=== PATIENT | female | born 2005 | race Hispanic/Latino ===

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

== ENCOUNTER 2023-04-12 10:14 | Emergency (ER) | payer SELFPAY ==
--- NOTE | 2023-04-12 10:15 | ED.URI ---
HPI - URI/Sore Throat General Chief Complaint: Upper Respiratory Infection Stated Complaint: Sore Throat Time Seen by Provider: 04/12/23 10:15 Source: patient Mode of arrival: ambulatory Limitations: no limitations History of Present Illness HPI Narrative: Patient is a 18-year-old female who presents with congestion, sore throat, cough for over a week. Patient states she had fever at the start of symptoms but have not had any since. Patient has been taking Robitussin. Denies any nausea, vomiting, diarrhea, ear pain. Household has similar symptoms. Related Data Home Medications Medication Instructions Recorded Confirmed Unknown Control 04/12/23 Allergies Allergy/AdvReac Type Severity Reaction Status Date / Time No Known Allergies Allergy Verified 04/12/23 10:44 Review of Systems Review of Systems: All systems reviewed & are unremarkable except as noted in HPI and below Constitutional: Constitutional: Denies body ache(s), Denies chills, Denies fatigue, Denies fever(s), Denies headache(s), Denies malaise and Denies weakness Eyes: Eyes: Denies blurry vision, Denies itchy eyes and Denies loss of vision ENT: Denies otalgia, Denies headache(s), Reports nasal congestion, Denies sinus pain and Reports sore throat Cardiovascular: Cardiovascular: Denies chest pain, Denies irregular heart rhythm and Denies dyspnea Respiratory: Respiratory: Reports cough and Denies dyspnea Gastrointestinal: Gastrointestinal: Denies abdominal pain, Denies diarrhea, Denies nausea and Denies vomiting Musculoskeletal: Musculoskeletal: Denies back pain, Denies myalgias and Denies arthralgias Integumentary/Breasts: Skin/Breast: Denies pruritus and Denies rash Neurologic: Denies headache(s), Denies loss of vision and Denies weakness Psychiatric: Psychiatric: Reports no additional psychiatric complaints Endocrine: Endocrine: Denies fatigue Allergic/Immunologic: Allergic/Immunologic: Denies itchy eyes PMFSH Past Medical History Medical History No active medical problems Social History Social History Smoking status: Never smoker Comments At time of signature, agree with nursing past medical, surgical, social and family history. There is no relevant family history pertinent to the presenting complaint. Exam Const: General: cooperative, healthy appearing, comfortable, no acute distress and well nourished Nutritional Appearance: well nourished Orientation/consciousness: patient oriented x3 Limitations: no limitations HENMT: Head: normal to inspection, normocephalic and atraumatic Ears: hearing grossly normal bilaterally, external ears normal, TM's normal bilaterally, EAC's normal and no periauricular adenopathy Face/Nose/Sinus: Normal external nose present, Abnormal mucous membranes and turbinates present erythematous bilateral and diffuse, normal facial exam, sinuses nontender and face symmetric Face and sinus: normal facial exam, sinuses nontender and face symmetric Mouth: Yes Normal oral and palatal mucosa present, Yes lip normal, Yes tongue normal, Yes Normal salivary glands and ducts present, Yes oropharynx normal and Yes moist mucous membranes Teeth and gingiva: dentition normal Throat: posterior oropharynx normal, tonsils normal and uvula midline Eyes: General: appearance normal, both eyes and all related structures Alignment and Position: alignment normal and position normal Periorbital: periorbital findings normal Eyelids: eyelids normal Pupils: Equal, round and reactive pupils present Neck: Neck: normal visual inspection, full ROM, no lymphadenopathy and supple Chest: Chest palpation & inspection: normal inspection of the chest and normal palpation of entire chest wall Resp: Effort & Inspection: normal respiratory effort and able to speak in complete sentences Auscultation: clear to auscultation oskar
[2023-04-12 10:23] VITALS: BP 127/84; PULSE 77; RESP 16; TEMP 36.6; O2SAT 99
== END 2023-04-12 10:57 | disposition home or self-care (01) ==
PROVIDERS: Emergency Provider Nurse Practitioner Family; PCP Physician Assistant
DX: J06.9 Acute upper respiratory infection, unspecified (principal)
CPT/HCPCS: 99213; G0463

== ENCOUNTER 2024-10-29 08:19 | Emergency (ER) | payer OTHER, SELFPAY ==
--- NOTE | ~2024-10-29 | CT_ITS ---
EXAM: CT abdomen pelvis w con - 10/29/2024 11:16 CDT History: 19 years old Female with lower abd pain LUQ PAIN, N/V/D TECHNIQUE: Multidetector CT of the abdomen and pelvis with intravenous contrast. Coronal and sagitta l reformats were also provided for review. Automatic exposure control was used for this study. CONTRAST: 100 cc of Optiray 350 was used for this study. COMPARISON: None Available. FINDINGS: VISUALIZED CHEST: Visualized lungs are clear. ABDOMEN and PELVIS: LIVER: Focal fatty infiltration along the falciform ligament. GALLBLADDER: No calcified gallstones. BILE DUCTS: No dilatation. SPLEEN: Within normal limits. PANCREAS: Within normal limits. ADRENAL GLANDS: Within normal limits. KIDNEYS and URETERS: No hydronephrosis or hydroureter. No nephroureterolithiasis. URINARY BLADDER: Within normal limits. STOMACH and BOWEL: No abnormal bowel wall thickening. No obstruction or pneumatosis. Normal appendix. Multiple fluid-filled distended loops of small bowel are seen, nonspecific finding and can be seen i n enteritis. REPRODUCTIVE ORGANS: Within normal limits. MESENTERY/PERITONEAL CAVITY: No free fluid or pneumoperitoneum. LYMPH NODES: No abdominal or pelvic lymphadenopathy. ABDOMINAL WALL: Within normal limits. VASCULATURE: Within normal limits. MUSCULOSKELETAL: Within normal limits. IMPRESSION: Multiple fluid-filled distended loops of small bowel are seen, nonspecific finding and can be seen in enteritis. Reviewed, dictated and finalized at location A. IMPRESSION: Multiple fluid-filled distended loops of small bowel are seen, nonspecific find ing and can be seen in enteritis.
--- OUTSIDE RECORDS SUMMARY | 2024-10-29 08:25 | XMS_ITS | Clinical Summary ---
Author Organization [facility] Address [address] [place] [id number] Care Team Providers Care Soda Room Operator Name Role Phone Jamil Mari MD Primary Care Provider [phone] Allergies No known active allergies Social History Tobacco Use Types Packs/Day Years Used Date Smoking Tobacco: Never Smokeless Tobacco: Never Alcohol Use Standard Drinks/Week Comments No 0 (1 standard drink = 0.6 oz pur e alcohol) AUDIT-C Answer Date Recorded Frequency of Alcohol Consumption Never 06/08/2018 Average Number of Drinks Not on file 019 Frequency of Binge Drinking Not on file 05/13 Comments No Sex and Gender Information Value Date Recorded Sex Assigned at Not on file Legal Sex Female 10:54 PM COMB FIXER Gender Identity Not on file Sexual Orientation Not on file Last Filed Vital Signs Vital Sign Reading Time Taken Comments Blood Pressure 125/66 06/09/2018 1:30 AM COMB [facility]ER Pulse 84 02/12/2019 11:45 PM COMB FIXER Temperature 36.6 C (97.8 F) 02/12/2019 11:45 PM COMB FIXER Respiratory Rate 16 02/12/2019 11:45 PM COMB FIXER Oxygen Saturation 100% 02/12/2019 11:45 PM COMB FIXER Inhaled Oxygen Concentration - - Weight 98.6 kg (217 lb 6 oz) 02/12/2019 11:45 PM COMB FIXER Height 157.5 cm (5' 2) 02/12/2019 11:45 PM COMB FIXER Body Mass Index 39.76 02/12/2019 11:45 PM COMB FIXER Plan of Treatment Health Maintenance Due Date Last Done Comments Cervical Cancer Screening Pap Smear (Age 21 to 29) Every 3 Years 2003 Cervical Cancer Screening 2003 Annual Physical 2006 Meningococcal B Vaccine (1 of 2 - Standard) 2019 Hepatitis C 2021 COVID-19 Vaccine (1 - 2023- season) 2023 DTaP, Tdap and Td Vaccines (7 - Td or Tdap) 05/09/2024 05/09/2014, 11/27/2007, 11/27/2007, Additional history exists Pneumococcal Vaccine: Pediatrics (0 to 5 Years) and At-Risk Patients (6 to 49 Years) Aged Out 02/26/2004, 2003, 2003 No longer eligible based on patient's age to complete this topic Hepatitis B Vaccines Completed 11/27/2007, 08/25/2004, 2003, Additional history exists Meningococcal Vaccine Aged Out 05/09/2014 No annel brie eligible based on patient's age to complete this topic HPV Vaccines Completed 09/27/2017, 12/30/2015 RSV Immunizations Under 20 Months Aged Out No longer eligible based on patient's age to complete this topic Insurance [employer] Care Teams Soda Room Operator Relationship Specialty Start Date End Date Jamil Mari MD [address] [id number] PCP - General PEDIATRICS 06/08/18
--- OUTSIDE RECORDS SUMMARY | 2024-10-29 08:25 | XMS_ITS | Clinical Summary ---
Author Organization [facility] Address [address] [place] [address] Care Team Providers Care Muck Farmer Name Role Phone Unavailable Primary Care Provider Unavailabl e Source Comments [facility],non-owned Affiliates and Associated Physician Practices is amultiple site organization consisting of ambulatory clinics and hospital sitesin [place], [place], [place] and [place]. This disclosure is being madepursuant to the Care Everywhere program and may not contain all information available regarding this patient. Last updated 17.[facility] Allergies No known active allergies Medications * Be aware that medications may not be up to date on this document. Alwaysverify current medications with the patient. ibuprofen (MOTRIN) 800 MG tablet Take 800 mg by mouth every 6 hours as needed for Pain Active polyethylene glycol 3350 (MIRALAX) powder Take 17 g by mouth once daily 500 g 3 07/03/2019 Active pantoprazole EC (Protonix) 40 MG tablet TAKE 1 TABLET BY MOUTH EVERY DAY 30 tablet 3 01/21/2022 Active Active Problems Problem Noted Date Diagnosed Date Generalized abdominal pain 05/22/2021 Intermittent exotropia 05/11/2021 Myopic astigmatism of both eyes 05/11/2021 Refractive amblyopia, bilateral 05/11/2021 Other constipation 07/03/2019 Acute right-sided low back pain 05/10/2018 Immunizations Immunization Administration Dates Next Due Covid Pfizer primary Monovalent 12+ yr 0.3ml ,02/04/2021 Family History Medical History Relation Name Comments [place] Maternal Grandfather Relation Name Status Comments Maternal Grandfather Social History Tobacco Use Types Packs/Day Years Used Date Smoking Tobacco: Never Smokeless Tobacco: Never Comments No Sex and Gender Information Value Date Recorded Sex Assigned at Not on file Legal Sex Female 5:43 AM [facility] Gender Identity Not on file Sexual Orientation Not on file Last Filed Vital Signs Vital Sign Reading Time Taken Comments Blood Pressure 109/67 05/22/2021 1:30 PM [facility] Pulse 60 05/22/2021 1:30 PM [facility] Temperature 36.5 C (97.7 F) 05/22/2021 1:15 PM [facility] Respiratory Rate 16 05/22/2021 1:30 PM [facility] Oxygen Saturation 97% 05/22/2021 1:30 PM [facility] Inhaled Oxygen Concentration - - Weight 101 kg (222 lb 10.6 oz) 05/22/2021 11:31 AM [facility] Height 156.7 cm (5' 1.69) 05/22/2021 11:[address] Body Mass Index 41.13 05/22/2021 11:31 AM [facility] Plan of Treatment Health Maintenance Due Date Last Done Comments HIV SCREENING 2018 HPV VACCINE (1 - 3-dose series) 2018 CHLAMYDIA/GONORRHEA SCREENING 2019 MENINGOCOCCAL (Group B) VACCINE SHARED DECISION-MAKING (1 of 2 - Standard) 2019 HEPATITIS C SCREENING 02/19/2021 DTAP/TDAP/TD VACCINES (1 - Tdap) 2022 HEPATITIS B VACCINE (1 of 3 - 19+ 3-dose series) 2022 COVID-19 VACCINE (3 - 2023-2 5 season) 2023 02/26/2021, 02/04/2021 PAP SMEAR 02/25/2024 DEPRESSION SCREENING 04/11/2024 INFLUENZA VACCINE (#1) 2024 ZOSTER VACCINE (1 of 2) 2053 HIB VACCINE Aged Out No longer eligi ble based on patient's age to complete this topic MENINGOCOCCAL GROUPS A/C/Y/W VACCINE Aged Out No longer eligible b ased on patient's age to complete this topic PNEUMOCOCCAL VACCINE Aged Out No long er eligible based on patient's age to complete this topic Insurance
--- OUTSIDE RECORDS SUMMARY | 2024-10-29 08:25 | XMS_ITS | Encounter Summary ---
Author Organization [facility] Address [address] [place] [address] Care Team Providers Care Medication Aid Name Role Phone Jamil Mari MD Primary Care Provider Reason for Visit * Reason Onset Date Comments Procedure 04/28/2021 Encounter Details Date Type Department Care Team (Late st Contact Info) Description 04/28/2021 Telephone [facility] Pediatrics - [address] [place] [id number] Luis Yap MD [address] [place] [id number] Procedure Social History Tobacco Use Types Packs/Day Years Used Date Smoking Tobacco: Never Smokeless Tobacco: Never Comments No Sex and Gender Information Value Date Recorded Sex Assigned at Not on file Legal Sex Female 5:43 AM COUNTER STITCHER Gender Identity Not on file Sexual Orientation Not on file documented as of this encounter Miscellaneous Notes * Telephone Encounter - Martha Guerrero 04/28/2021 10:50 AM CST DARIO abarca called and scheduled EGD proc with Marely on 05/22/21 at 1:45 pm. Prep letter given to [facility]. COVID protocol to be relayed. TER STITCHER documented in this encounter Plan of Treatment Not on file documented as of this encounter Visit Diagnoses Not on filedocumented in this encounter Care Teams Medication Aid Relationship Specialty Start Date End Date Jamil Mari MD [address] [facility] [address] [place] [address] PCP - General Pediatrics 04/08/17 11/10/23 documented as of this encounter
--- OUTSIDE RECORDS SUMMARY | 2024-10-29 08:25 | XMS_ITS | Encounter Summary ---
Author Organization [facility] Address [address] [place] [address] Care Team Providers Care Scientific Advisor Name Role Phone Jamil Mari MD Primary Care Provider [phone] Encounter Details Date Type Department Care Team (Late st Contact Info) Description 05/26/[address] [address] Luis Yap MD [address] [place] [address] Social History Tobacco Use Types Packs/Day Years Used Date Smoking Tobacco: Never Smokeless Tobacco: Never Comments No Sex and Gender Information Value Date Recorded Sex Assigned at Not on file Legal Sex Female 5:43 AM DIRECTOR FEDERAL Gender Identity Not on file Sexual Orientation Not on file documented as of this encounter Functional Status * Is person deaf or have serious hearing difficulty? Answer Date of Assessment Author No 05/22/2021 1:48 PM DIRECTOR FEDERAL Xi Matamoros RN * Is person blind or have serious difficulty seeing? Answer Date of Assessment Author No 05/22/2021 1:48 PM DIRECTOR FEDERAL Xi Matamoros, RN * Does person have serious difficulty walking/climbing stairs? Answer Date of Assessment Author No 05/22/2021 1:48 PM DIRECTOR FEDERAL Xi Matamoros, RN * Does person have difficulty dressing/bathing? Answer Date of Assessment Author No 05/22/2021 1:48 PM DIRECTOR FEDERAL Xi Matamoros, RN * Does person have difficulty doing errands alone? Answer Date of Assessment Author No 05/22/2021 1:48 PM Xi Jameson RN documented as of this encounter Mental Status * Does person have difficulty concentrating/remembering/making decisions? Answer Entry Date Author No 05/22/2021 1:48 PM Xi Jameson RN documented in this encounter Miscellaneous Notes * Telephone Encounter - Sandrita Londono RN - 05/29/2021 9:15 AM CST Left message to call the office. Letter mailed to home address that we are trying to contact them. CTOR FEDERAL * Telephone Encounter - Mattie Bar RN - 05/28/2021 8:45 AM DIRECTOR FEDERAL LM on home VM asking someone to call us back CTOR FEDERAL * Telephone Encounter - Fina Hamilton RN - 05/27/2021 9:40 AM CST LM requesting mom call office for results. CTOR FEDERAL * Telephone Encounter - Diana Rubio RN - 05/26/2021 1:07 PM DIRECTOR FEDERAL Primary phone number does not have VM set up. CTOR FEDERAL * Telephone Encounter - Isabella De La Cruz APRN-KARLEE - 05/26/2021 11:33 AM DIRECTOR FEDERAL I called to discuss the normal EGD. No voicemail option. Please try mom again. CTOR FEDERAL * Telephone Encounter - Luis Yap MD - 05/26/2021 10:49 AM DIRECTOR FEDERAL See normal scope CTOR FEDERAL documented in this encounter Plan of Treatment Not on file documented as of this encounter Visit Diagnoses Not on filedocumented in this encounter Care Teams Scientific Advisor Relationship Specialty Start Date End Date Jamil Mari MD [address] [place] [address] PCP - General Pediatrics 04/08/17 11/10/23 documented as of this encounter
[2024-10-29 08:42] VITALS: BP 137/79; PULSE 56; RESP 20; TEMP 36.7; O2SAT 98
[2024-10-29 08:49] VITALS: BP 120/63; PULSE 60; RESP 19; TEMP 36.9; O2SAT 100
--- OUTSIDE RECORDS SUMMARY | 2024-10-29 09:09 | XMS_ITS | Clinical Summary ---
Author Organization [facility] Address [address] [place] [address] Care Team Providers Care Framing Mechanic Name Role Phone Jamil Mari MD Primary Care Provider [phone] Allergies No known active allergies Social History [...] on file Legal Sex Female 10:54 PM WINDOW DRESSER Gender Identity Not on file Sexual Orientation Not on file Last Filed Vital Signs Vital Sign Reading Time Taken Comments Blood Pressure 125/66 06/09/2018 1:30 AM WINDOW DRESSER Pulse 84 02/12/2019 11:45 PM WINDOW DRESSER Temperature 36.6 C (97.8 F) 02/12/2019 11:45 PM WINDOW DRESSER Respiratory Rate 16 02/12/2019 11:45 PM WINDOW DRESSER Oxygen Saturation 100% 02/12/2019 11:45 PM WINDOW DRESSER Inhaled Oxygen Concentration - - Weight 98.6 kg (217 lb 6 oz) 02/12/2019 11:45 PM WINDOW DRESSER Height 157.5 cm (5' 2) 02/12/2019 11:45 PM WINDOW DRESSER Body Mass Index 39.76 02/12/2019 11:45 PM WINDOW DRESSER Plan of Treatment Health Maintenance Due Date [...] patient's age to complete this topic Insurance [place] Care Teams Framing Mechanic Relationship Specialty Start Date End Date Jamil Mari MD [address] [address] PCP - General PEDIATRICS 06/08/18
--- OUTSIDE RECORDS SUMMARY | 2024-10-29 09:09 | XMS_ITS | Clinical Summary ---
Author Organization [facility] Address [address] [facility] [place] [address] Care Team Providers Care Soil Tester Name Role Phone Unavailable Primary Care Provider Unavailabl e Source Comments [facility],non-owned Affiliates and Associated Physician Practices is amultiple site organization consisting of ambulatory clinics and hospital sitesin [place], [place], [place] and [place]. This disclosure is being madepursuant to the Care Everywhere program and may not contain all information available regarding this patient. Last updated 17.[facility] Allergies No known active allergies Medications [...] on file Legal Sex Female 5:43 AM ASSISTANT CHILD CARE TEACHER Gender Identity Not on file Sexual Orientation Not on file Last Filed Vital Signs Vital Sign Reading Time Taken Comments Blood Pressure 109/67 05/22/2021 1:30 PM ASSISTANT CHILD CARE TEACHER Pulse 60 05/22/2021 1:30 PM ASSISTANT CHILD CARE TEACHER Temperature 36.5 C (97.7 F) 05/22/2021 1:15 PM ASSISTANT CHILD CARE TEACHER Respiratory Rate 16 05/22/2021 1:30 PM ASSISTANT CHILD CARE TEACHER Oxygen Saturation 97% 05/22/2021 1:30 PM ASSISTANT CHILD CARE TEACHER Inhaled Oxygen Concentration - - Weight 101 kg (222 lb 10.6 oz) 05/22/2021 11:31 AM ASSISTANT CHILD CARE TEACHER Height 156.7 cm (5' 1.69) 05/22/2021 11:[address] Body Mass Index 41.13 05/22/2021 11:31 AM ASSISTANT CHILD CARE TEACHER Plan of Treatment Health Maintenance Due Date [...]
--- OUTSIDE RECORDS SUMMARY | 2024-10-29 09:09 | XMS_ITS | Encounter Summary ---
Author Organization [facility] Address [address] [place] [address] Care Team Providers Care Presentation Specialist Name Role Phone Jamil Mari MD Primary Care Provider [phone] Reason for Visit * Reason Onset Date Comments Procedure 04/28/2021 Encounter Details Date Type Department Care Team (Late st Contact Info) Description 04/28/2021 Telephone [facility] - [address] [place] [id number] Luis Yap MD [address] [place] [id number] Procedure Social History Tobacco Use Types Packs/Day Years Used Date Smoking Tobacco: Never Smokeless Tobacco: Never Comments No Sex and Gender Information Value Date Recorded Sex Assigned at Not on file Legal Sex Female 5:43 AM RODDING ANODE WORKER Gender Identity Not on file Sexual Orientation Not on file documented as of this encounter Miscellaneous Notes * Telephone Encounter - Martha Guerrero 04/28/2021 10:50 AM CST DARIO abarca called and scheduled EGD proc with Marely on 05/22/21 at 1:45 pm. Prep letter given to mom a clinic. COVID protocol to be relayed. ING ANODE WORKER documented in this encounter Plan of Treatment Not on file documented as of this encounter Visit Diagnoses Not on filedocumented in this encounter Care Teams Presentation Specialist Relationship Specialty Start Date End Date Jamil Mari MD [address] [facility] [address] [place] [address] PCP - General Pediatrics 04/08/17 11/10/23 documented as of this encounter
--- OUTSIDE RECORDS SUMMARY | 2024-10-29 09:09 | XMS_ITS | Encounter Summary ---
Author Organization [facility] Address [address] [place] [address] Care Team Providers Care School Aide Name Role Phone Jamil Mari MD Primary Care Provider [phone] Encounter Details Date Type Department Care Team (Late st Contact Info) Description 05/26/[address] [address] Luis Yap MD [address] [place] [address] Social History Tobacco Use Types Packs/Day Years Used Date Smoking Tobacco: Never Smokeless Tobacco: Never Comments No Sex and Gender Information Value Date Recorded Sex Assigned at Not on file Legal Sex Female 5:43 AM COOLER SERVICER Gender Identity Not on file Sexual Orientation Not on file documented as of this encounter Functional Status * Is person deaf or have serious hearing difficulty? Answer Date of Assessment Author No 05/22/2021 1:48 PM COOLER SERVICER Xi Matamoros RN * Is person blind or have serious difficulty seeing? Answer Date of Assessment Author No 05/22/2021 1:48 PM COOLER SERVICER Xi Matamoros, RN * Does person have serious difficulty walking/climbing stairs? Answer Date of Assessment Author No 05/22/2021 1:48 PM COOLER SERVICER Xi Matamoros, RN * Does person have difficulty dressing/bathing? Answer Date of Assessment Author No 05/22/2021 1:48 PM COOLER SERVICER Xi Matamoros, RN * Does person have [...] that we are trying to contact them. ER SERVICER * Telephone Encounter - Mattie Bar RN - 05/28/2021 8:45 AM COOLER SERVICER LM on home VM asking someone to call us back ER SERVICER * Telephone Encounter - Fina Hamilton RN - 05/27/2021 9:40 AM CST LM requesting mom call office for results. ER SERVICER * Telephone Encounter - Diana Rubio RN - 05/26/2021 1:07 PM COOLER SERVICER Primary phone number does not have VM set up. ER SERVICER * Telephone Encounter - Isabella De La Cruz APRN-KARLEE - 05/26/2021 11:33 AM COOLER SERVICER I called to discuss the normal EGD. No voicemail option. Please try mom again. ER SERVICER * Telephone Encounter - Luis Yap MD - 05/26/2021 10:49 AM COOLER SERVICER See normal scope ER SERVICER documented in this encounter Plan of Treatment Not on file documented as of this encounter Visit Diagnoses Not on filedocumented in this encounter Care Teams School Aide Relationship Specialty Start Date End Date Jamil Mari MD [address] [place] [address] PCP - General Pediatrics 04/08/17 11/10/23 documented as of this encounter
--- NOTE | 2024-10-29 09:32 | ED.NAVMDI ---
HPI - Nausea/Vomiting/Diarrhea General Chief complaint: Nausea/Vomiting/Diarrhea Stated complaint: abdominal pain, vomiting Time Seen by Provider: 10/29/24 09:01 Source: patient Mode of arrival: ambulatory Limitations: no limitations History of Present Illness HPI Narrative: Patient is a 19 y/o female, with PMH of IBS, who presents to the ED with c/o abd pain, N/V/D. Patient reports having cramping periumbilical and epigastric abdominal pain that has been consistent over the past 1 week. Reports nausea, vomiting, intermittent diarrhea/constipation. Reports she recently returned from [place] as beginning of the month and her mother did have some similar symptoms after returning as well, though her symptoms have since resolved. Patient does report decreased appetite, denies fevers. Denies rectal bleeding, melena, urinary complaints. Related Data Home Medications ?Medication ?Instructions ?Recorded ?Confirmed ?Last Taken ?Type Unknown Control 04/12/23 Unknown History Allergies Allergy/AdvReac Type Severity Reaction Status Date / Time No Known Allergies Allergy Verified 10/29/24 08:49 Review of Systems Review of Systems: All systems reviewed & are unremarkable except as noted in HPI. All systems reviewed & are unremarkable except as noted in HPI and below PMFSH Past Medical History Medical History No active medical problems Social History Social History Smoking status: Never smoker Exam Narrative: GENERAL: Well appearing, morbidly obese with BMI of 40.3, non-toxic, in no acute distress. HEAD: Normocephalic, atraumatic. RESPIRATORY: Airway patent, respirations nonlabored. Clear to auscultation bilaterally, no rales, rhonchi, wheezing. CARDIOVASCULAR: Regular rate and rhythm without murmurs, rubs, or gallops. ABDOMINAL: Soft, mild diffuse tenderness throughout epigastric region, periumbilical region, nondistended. Normoactive BS. MUSCULOSKELETAL: Moves all extremities. No gross deformities. SKIN: Warm, dry, normal color. NEURO: A&O X3. Speech clear. Cranial nerves II-XII grossly intact. Steady gait. No ataxic movements. PSYCHIATRIC: Appropriate mood and affect. Normal interaction. Course Vital Signs Vital signs: Vital Signs Temperature 98.0 F 10/29/24 08:42 Pulse Rate 56 L 10/29/24 08:42 Respiratory Rate 20 10/29/24 08:42 Blood Pressure 137/79 10/29/24 08:42 Pulse Oximetry 98 10/29/24 08:42 Oxygen Delivery Room Air 10/29/24 08:42 Temperature 98.5 F 10/29/24 08:49 Pulse Rate 60 10/29/24 08:49 Respiratory Rate 19 10/29/24 08:49 Blood Pressure 120/63 10/29/24 08:49 Pulse Oximetry 100 10/29/24 08:49 Oxygen Delivery Room Air 10/29/24 08:42 MDM - Nausea/Vomiting/Diarrhea MDM Narrative Medical decision making narrative: Patient presented to ED with intermittent abdominal pain over the past 1 week, nausea, vomiting, diarrhea. Recent trip to [place]. Vital signs are stable upon arrival. Patient is in no acute distress. Cbc without leukocytosis or anemia. CMP is unremarkable. Stable electrolytes. Stable kidney function. Normal LFTs and lipase. UA is clear. Urine is negative. CT scan of abdomen/pelvis was obtained and showing findings of nonspecific enteritis. Patient was given Pepcid, fluids, Zofran, Bentyl. On re-evaluation, she is feeling much better. Discussed lab and imaging findings, likelihood of gastroenteritis and management of such. Will prescribe Bentyl, Zofran, Pepcid for home use. Advised to stay well hydrated. Encouraged plenty of fluids. Discussed brat diet. Recommended follow-up with PCP for further evaluation. Given strict return precautions. She is in agreement with plan. Discharged in stable condition. Medical Records Attestation: I reviewed the patient's medical records. Lab Data Attestation: I reviewed the patient's lab results. 10/29/24 09:36 10/29/24 09:36 Labs: Lab Results 10/29/24 10/29/24 10/29/24 Range/Units 09:36 09:49 10:10 WBC 6.8 (4.5-10.0) K/mm3 RBC 4.49 (4.2-5.4) M/mm3 Hgb 12.7 (12.0-15.0) g/dL Hct 39.5 (37.0-47.0) % MCV 88.0 (80-100) fl MCH 28.3 (26-34) pg MCHC 32.2 (32-36) g/dl RDW 13.1 (11.5-14.5) % Plt Count 196 (150-375) k/mm3 MPV 11.0 H (7.4-10.4) fl Immature Gran % (Auto) 0.3 (0-0.5) % Neut % (Auto) 53.9 (45.5-73.1) % Lymph % (Auto) 35.3 (18.3-44.2) % Finney % (Auto) 8.3 (2.6-8.5) % Eos % (Auto) 1.8 (0-4.4) % Baso % (Auto) 0.4 (0.2-1.2) % Lymph # (Auto) 2.39 (0.9-3.2) K/mm3 Finney # (Auto) 0.6 (0.1-0.6) K/mm3 Eos # (Auto) 0.1 (0-0.3) K/mm3 Baso # (Auto) 0.0 (0.0-0.1) K/mm3 Abs Immat Gran (auto) 0.02 (0.00-0.031) K/mm3 Absolute Neuts (auto) 3.7 (1.3-6.7) K/mm3 Absolute Nucleated RBC 0.000 (0.0-0.012) K/mm3 Nucleated RBC % 0.0 (0.0-0.2) % Sodium 139 (137-145) mmol/L Potassium 4.2 (3.4-5.0) mmol/L Chloride 107 (98-107) mmol/L Carbon Dioxide 22 (22-30) mmol/L Anion Gap 10 (4-12) mmol/L BUN 13 (7-17) mg/dL Creatinine 0.51 L (0.7-1.0) mg/dL Estim Creat Clear Calc 161 ml/min Estimated GFR > 60 (59 - ) Glucose 84 (65-110) mg/dL Calcium 9.4 (8.4-10.2) mg/dL Magnesium 2.0 (1.6-2.3) mg/dL Total Bilirubin 0.6 (0.2-1.3) mg/dL AST 37 H (14-36) U/L ALT 30 (6-35) U/L Alkaline Phosphatase 80 (38-126) U/L Total Protein 8.2 (6.3-8.2) g/dL Albumin 4.4 (3.5-5.1) g/dL Lipase 43 (23-300) U/L Urine Color Yellow (Yellow) Urine Appearance Clear (Clear) Urine pH 7.5 (5.0-9.0) Ur Specific [place] 1.020 (1.001-1.035) Urine Protein Negative (Negative) mg/dL Urine Glucose (UA) Negative (Negative) mg/dL Urine Ketones Negative (Negative) mg/dL Ur Blood (Man) Negative (Negative) Urine Nitrate Negative (Negative) Urine Bilirubin Negative (Negative) Urine Urobilinogen 0.2 (<2.0) mg/dL Leukocyte Esterase Rfl Negative (Negative) KORINA/UL POC Urine HCG, Qual Negative (Negative) Imaging Data Attestation: I personally reviewed and interpreted this imaging study as follows: Radiologist's impression: ITS Impressions Abdomen/Pelvis CT 10/29/24 11:34 IMPRESSION: Multiple fluid-filled distended loops of small bowel are seen, nonspecific finding and can be seen in enteritis. Discharge Plan Discharge Clinical Impression: Gastroenteritis Patient Disposition: Home Condition: Stable Instructions: Antibiotic Form, Clear Liquid Diet (ED), Gastroenteritis (ED), Acute Nausea and Vomiting (ED) Additional Instructions: Recommend Tylenol, Bentyl as needed for pain. Recommend taking Pepcid daily for acid reflux. Utilize zofran as needed for further nausea. Increase fluid intake. Recommend electrolyte rich fluids, gatorade, pedialyte, body armour. Recommend clear liquids or bland diet until symptoms improve, such as bananas, rice, applesauce, toast, or crackers. Follow up with your primary care doctor for further evaluation. Return to the ED if you experience worsening or severe symptoms, unable to keep down food or drink, severe pain, fevers, rectal bleeding, vomiting blood, or any other symptoms of concern. Patient Language: Vietnamese Prescriptions: New dicyclomine 20 mg tablet 20 mg PO TID PRN (Reason: Abdominal Discomfort) Qty: 15 0RF ondansetron 4 mg tablet,disintegrating 4 mg PO Q8H PRN (Reason: nausea and vomiting) Qty: 15 0RF famotidine [Pepcid] 20 mg tablet 20 mg PO DAILY Qty: 15 0RF No Action Unknown Control azithromycin 250 mg tablet See Rx Instructions .ROUTE .COMPLEX Qty: 6 0RF Rx Instructions: For 250 mg dose pack: take 500 mg today (day 1), then 250 mg for 4 days (days 2-5) prednisone 20 mg tablet 40 mg PO DAILY 5 Days Qty: 10 0RF benzonatate 100 mg capsule 100 mg PO BID PRN (Reason: cough) Qty: 14 0RF Follow-up/Referrals: Pura,ROBBY Zarate [Primary Care Provider] - Stand Alone Forms: Work/School Release IP Time of Disposition: 12:10
[2024-10-29 09:40] LABS: Hematocrit 39.5 % (37.0-47.0); Hemoglobin 12.7 g/dL (12.0-15.0); Immature Granulocyte Percent A 0.3 % (0-0.5); Lymphocytes Absolute Auto 2.39 K/mm3 (0.9-3.2); Mean Corpuscular HGB Conc 32.2 g/dl (32-36); Mean Corpuscular Hemoglobin 28.3 pg (26-34); Mean Corpuscular Volume 88.0 fl (80-100); Nucleated Red Blood Cells Absolute Auto 0.000 K/mm3 (0.0-0.012); Nucleated Red Blood Cells Perc 0.0 % (0.0-0.2); Platelet Count Result 196 k/mm3 (150-375); Red Blood Count 4.49 M/mm3 (4.2-5.4); White Blood Count 6.8 K/mm3 (4.5-10.0)
[2024-10-29 09:56] LABS: Add Urine Microscopic? NO; Appearance Urine Clear (Clear); Glucose Urine UA Negative (Negative); Leukocyte Esterase Ur Negative LEU/UL (Negative); Nitrate Urine Negative (Negative); Specific Grav Ur 1.020 (1.001-1.035)
[2024-10-29 10:00] LABS: Alanine Aminotransferase 30 U/L (6-35); Albumin Level 4.4 g/dL (3.5-5.1); Alkaline Phosphatase 80 U/L (38-126); Anion Gap 10 mmol/L (4-12); Aspartate Amino Transferase 37 U/L (14-36); Bilirubin,Total 0.6 mg/dL (0.2-1.3); Blood Urea Nitrogen 13 mg/dL (7-17); Calcium 9.4 mg/dL (8.4-10.2); Carbon Dioxide 22 mmol/L (22-30); Chloride 107 mmol/L (98-107); Estimated CRCL calculation 161 ml/min; Estimated Glomerular Filt Rate > 60; Glucose 84 mg/dL (65-110); Lipase 43 U/L (23-300); Magnesium 2.0 mg/dL (1.6-2.3); Potassium 4.2 mmol/L (3.4-5.0); Sodium 139 mmol/L (137-145); Total Protein 8.2 g/dL (6.3-8.2)
[2024-10-29 10:12] LABS: BEDSIDEPREGUCG Negative (Negative)
[2024-10-29] MEDS: ONDANSETRON INJ 4 MG/2 ML VIAL IV PUSH (10:14)
[2024-10-29] MEDS: SODIUM CHLORIDE 0.9% IV 1,000 ML 999 ML IV CONT (10:14)
[2024-10-29] MEDS: DICYCLOMINE HCL 10 MG CAPSULE 20 MG PO (10:14)
[2024-10-29] MEDS: FAMOTIDINE 20 MG/2 ML VIAL IV PUSH (10:50)
[2024-10-29 12:19] VITALS: BP 104/79; PULSE 60; RESP 20; O2SAT 100
== END 2024-10-29 12:21 | disposition home or self-care (01) ==
PROVIDERS: Emergency Provider Physician Assistant; PCP Physician Assistant
DX: K52.9 Noninfective gastroenteritis and colitis, unspecified (principal)
CPT/HCPCS: 36415; 74177; 80053; 81003; 81025; 83690; 83735; 85025; 96361; 96374; 96375; 99284; A9270; J2405; J7030; Q9967

== ENCOUNTER 2025-03-25 13:52 | Emergency (ER) | payer OTHER, SELFPAY ==
--- NOTE | ~2025-03-25 | CT_ITS ---
EXAMINATION: CT cervical spine wo con DATE: 03/25/2025 16:07 INDICATION: Fall TECHNIQUE: Computed tomography (CT) of the cervical spine was performed without intravenous contrast. Automated exposure control and iterative reconstruction technique were employed. The dose-length product was 590.50 mGy-cm. COMPARISON: None FINDINGS: Alignment is normal. Vertebral body and disc heights are normal. No fracture. Minimal to mild osteoarthritis at a few of the cervical facet and uncovertebral joints. No central canal or neural foraminal stenosis. Cervical soft tissues are unremarkable. Visualized upper lungs are clear. IMPRESSION: 1. Minimal to mild cervical facet and uncovertebral osteoarthritis. Otherwise unremarkable CT with no acute osseous abnormality. Reviewed, dictated and finalized at location A. N SERVICE TECHNICIAN IMPRESSION: 1. Minimal to mild cervical facet and uncovertebral osteoarthritis. Otherwise u nremarkable CT with no acute osseous abnormality.
--- NOTE | ~2025-03-25 | CT_ITS ---
EXAMINATION: CT brain wo con DATE: 03/25/2025 16:06 INDICATION: Fall TECHNIQUE: Computed tomography (CT) of the head was performed without intravenous contrast. Sagittal and coronal reconstructions were performed. The mA was adjusted according to patient size. Iterative reconstruction technique was employed. The dose-length product was 529.67 mGy-cm. COMPARISON: None FINDINGS: No fracture. No acute intracranial hemorrhage, acute infarction or abnormal extra axial fluid collection. Ventricles are normal and symmetric. No mass/mass effect. The orbits, paranasal sinuses and mastoid air cells are normal. IMPRESSION: 1. Normal head CT. No fracture or acute intracranial process. Reviewed, dictated and finalized at location A. STANT PROFESSOR
--- NOTE | ~2025-03-25 | XR_ITS ---
EXAMINATION: XR ankle LT 2V, 03/25/2025 16:25 WHARF HELPER HISTORY: trauma COMPARISON: No comparisons available. Findings: No acute fracture or malalignment. No significant degenerative changes. Soft tissues unremarkable. Impression: No acute fracture or malalignment. Reviewed, dictated and finalized at location P. F HELPER Impression: No acute fracture or malalignment.
[2025-03-25 14:12] VITALS: BP 122/73; PULSE 59; RESP 20; TEMP 36.4; O2SAT 100
--- NOTE | 2025-03-25 15:35 | ED.FALL ---
HPI - Fall General Chief Complaint: Fall Stated Complaint: fell at work, hit head, back pain Time Seen by Provider: 03/25/25 15:27 History of Present Illness HPI Narrative: Pt was at work and backing out of walk in with order of groceries in arms and tripped over palate on ground landing on back of head and twisting ankle under palate. Pt denies LOC. Pt has b/l neck pain and mild MACIAS. P has mild tenderness to lateral left ankle. Related Data Home Medications ?Medication ?Instructions ?Recorded ?Confirmed ?Last Taken ?Type Unknown Control 04/12/23 Unknown History Allergies Allergy/AdvReac Type Severity Reaction Status Date / Time No Known Allergies Allergy Verified 03/25/25 13:59 Review of Systems Review of Systems: All systems reviewed & are unremarkable except as noted in HPI and below PMFSH Past Medical History Medical History No active medical problems Social History Social History Smoking status: Never smoker Exam Const: General: healthy appearing and no acute distress Nutritional Appearance: well nourished Orientation/consciousness: patient oriented x3 Limitations: no limitations HENMT: Head: contusion left occipital and right occipital Eyes: EOM: EOMs intact bilaterally Neck: Neck: normal visual inspection and no meningeal signs Other: tender bilateral paraspinous muscles no midline pain Chest: Chest palpation & inspection: normal inspection of the chest Resp: Effort & Inspection: normal respiratory effort Auscultation: clear to auscultation bilaterally Cardio: Rate: regular rate Rhythm: regular rhythm GI: GI Palp: Yes Soft to palpation and No Tenderness to palpation present (GI) Auscultation: normal bowel sounds Back/Spine/Pelvis: Back: no CVA tenderness Skin: General skin exam: normal color Rashes: no rashes Wounds: no wounds Neuro: General: patient oriented x3, moves all extremities, no meningeal signs and no focal motor deficits Speech: normal speech Extrem: General: normal to inspection and no clubbing, cyanosis or edema Other: tender lateral malleulus left ankle no swelling Psych: Mental Status: mental status grossly normal Affect: normal affect Attitude: cooperative Course Vital Signs Vital signs: Vital Signs Temperature 97.6 F 03/25/25 14:12 Pulse Rate 59 L 03/25/25 14:12 Respiratory Rate 20 03/25/25 14:12 Blood Pressure 122/73 03/25/25 14:12 Pulse Oximetry 100 03/25/25 14:12 Oxygen Delivery Room Air 03/25/25 14:12 Temperature 97.6 F 03/25/25 14:12 Pulse Rate 59 L 03/25/25 14:12 Respiratory Rate 20 03/25/25 14:12 Blood Pressure 122/73 03/25/25 14:12 Pulse Oximetry 100 03/25/25 14:12 Oxygen Delivery Room Air 03/25/25 14:12 MDM MDM Narrative Medical decision making narrative: will get ct head and c spine and x ray ankle and treat pain. x rays and ct unremarkable Differential Diagnosis Differential Diagnosis: sah head injury, subdural, ankle fx vs sprain, cervical strain vs fx vs contusion Imaging Data Attestation: I personally reviewed and interpreted this imaging study as follows: My impression: no fx or blood Radiologist's impression: ITS Impressions Head CT 03/25/25 16:13 IMPRESSION: 1. Normal head CT. No fracture or acute intracranial process. Cervical Spine CT 03/25/25 16:14 IMPRESSION: 1. Minimal to mild cervical facet and uncovertebral osteoarthritis. Otherwise unremarkable CT with no acute osseous abnormality. Ankle X-Ray 03/25/25 16:32 Impression: No acute fracture or malalignment. Discharge Plan Discharge Clinical Impression: Ankle sprain, Head injury, Cervical strain Patient Disposition: Home Condition: Stable Instructions: Antibiotic Form, Ankle Sprain (ED), Concussion (ED), Contusion in Adults (ED) Patient Language: Moldovan Prescriptions: New naproxen [Naprosyn] 500 mg tablet 500 mg PO BID Qty: 20 0RF methocarbamol 500 mg tablet 500 mg PO TID Qty: 30 0RF No Action Unknown Control azithromycin 250 mg tablet See Rx Instructions .ROUTE .COMPLEX Qty: 6 0RF Rx Instructions: For 250 mg dose pack: take 500 mg today (day 1), then 250 mg for 4 days (days 2-5) prednisone 20 mg tablet 40 mg PO DAILY 5 Days Qty: 10 0RF benzonatate 100 mg capsule 100 mg PO BID PRN (Reason: cough) Qty: 14 0RF dicyclomine 20 mg tablet 20 mg PO TID PRN (Reason: Abdominal Discomfort) Qty: 15 0RF ondansetron 4 mg tablet,disintegrating 4 mg PO Q8H PRN (Reason: nausea and vomiting) Qty: 15 0RF famotidine [Pepcid] 20 mg tablet 20 mg PO DAILY Qty: 15 0RF Follow-up/Referrals: Pura,ROBBY Zarate [Primary Care Provider, Family Practice] Stand Alone Forms: Work/School Release IP
[2025-03-25] MEDS: KETOROLAC 30 MG/ML VIAL (*BKC) IM (16:14)
--- OUTSIDE RECORDS SUMMARY | 2025-03-25 18:05 | XMS_ITS | Clinical Summary ---
Author Organization [facility] Address [address] [place] [address] Care Team Providers Care Shipmaster Name Role Phone Unavailable Primary Care Provider Unavailabl e Source Comments [facility],non-owned Affiliates and Associated Physician Practices is amultiple site organization consisting of ambulatory clinics and hospital sitesin [place], [place], [place] and [place]. This disclosure is being madepursuant to the Care Everywhere program and may not contain all information available regarding this patient. Last updated 17.[facility] Allergies No known active allergies Medications * [...] on file Legal Sex Female 5:43 AM DISC RECORDIST Gender Identity Not on file Sexual Orientation Not on file Last Filed Vital Signs Vital Sign Reading Time Taken Comments Blood Pressure 109/67 05/22/2021 1:30 PM DISC RECORDIST Pulse 60 05/22/2021 1:30 PM DISC RECORDIST Temperature 36.5 C (97.7 F) 05/22/2021 1:15 PM DISC RECORDIST Respiratory Rate 16 05/22/2021 1:30 PM DISC RECORDIST Oxygen Saturation 97% 05/22/2021 1:30 PM DISC RECORDIST Inhaled Oxygen Concentration - - Weight 101 kg (222 lb 10.6 oz) 05/22/2021 11:31 AM DISC RECORDIST Height 156.7 cm (5' 1.69) 05/22/2021 11:[address] Body Mass Index 41.13 05/22/2021 11:31 AM DISC RECORDIST Plan of Treatment Health Maintenance Due Date Last Done Comments HIV SCREENING 2018 HPV VACCINE (1 - 3-dose series) 2018 CHLAMYDIA/GONORRHEA SCREENING 2019 MENINGOCOCCAL (Group B) VACCINE SHARED DECISION-MAKING (1 of 2 - Standard) 2019 HEPATITIS C SCREENING 02/19/2021 DTAP/TDAP/TD VACCINES (1 - Tdap) 2022 HEPATITIS B VACCINE (1 of 3 - 19+ 3-dose series) 2022 PAP SMEAR 02/25/2024 DEPRESSION SCREENING 04/11/2024 COVID-19 VACCINE (3 - 2024-2 6 season) 2024 02/26/2021, 02/04/2021 INFLUENZA VACCINE (#1) 2024 ZOSTER VACCINE (1 [...]
--- OUTSIDE RECORDS SUMMARY | 2025-03-25 18:05 | XMS_ITS | Encounter Summary ---
Author Organization [facility] Address [address] [place] [address] Care Team Providers Care Operational Intelligence Analyst Name Role Phone Jamil Mari MD Primary Care Provider [phone] Reason for Visit * Reason Onset Date Comments Procedure 04/28/2021 Encounter Details Date Type Department Care Team (Late st Contact Info) Description 04/28/2021 Telephone [facility] Pediatrics - [address] [place] [id number] Luis Yap MD [address] [place] [id number] Procedure Social History Tobacco Use Types Packs/Day Years Used Date Smoking Tobacco: Never Smokeless Tobacco: Never Comments No Sex and Gender Information Value Date Recorded Sex Assigned at Not on file Legal Sex Female 5:43 AM SOFTWARE DEVELOPER MANAGER Gender Identity Not on file Sexual Orientation Not on file documented as of this encounter Miscellaneous Notes * Telephone Encounter - Martha Guerrero 04/28/2021 10:50 AM CST DARIO abarca called and scheduled EGD proc with Marely on 05/22/21 at 1:45 pm. Prep letter given to mom a clinic. COVID protocol to be relayed. WARE DEVELOPER MANAGER documented in this encounter Plan of Treatment Not on file documented as of this encounter Visit Diagnoses Not on filedocumented in this encounter Care Teams Operational Intelligence Analyst Relationship Specialty Start Date End Date Jamil Mari MD [address] [facility] [address] [place] [address] PCP - General Pediatrics 04/08/17 11/10/23 documented as of this encounter
--- OUTSIDE RECORDS SUMMARY | 2025-03-25 18:05 | XMS_ITS | Clinical Summary ---
Author Organization [facility] Address [address] [place] [address] Care Team Providers Care Roof Cement And Paint Maker Helper Name Role Phone Jamil Mari MD Primary Care Provider [phone] Allergies No known active allergies Social History [...] on file Legal Sex Female 10:54 PM HOME ECONOMIST Gender Identity Not on file Sexual Orientation Not on file Last Filed Vital Signs Vital Sign Reading Time Taken Comments Blood Pressure 125/66 06/09/2018 1:30 AM HOME ECONOMIST Pulse 84 02/12/2019 11:45 PM HOME ECONOMIST Temperature 36.6 C (97.8 F) 02/12/2019 11:45 PM HOME ECONOMIST Respiratory Rate 16 02/12/2019 11:45 PM HOME ECONOMIST Oxygen Saturation 100% 02/12/2019 11:45 PM HOME ECONOMIST Inhaled Oxygen Concentration - - Weight 98.6 kg (217 lb 6 oz) 02/12/2019 11:45 PM HOME ECONOMIST Height 157.5 cm (5' 2) 02/12/2019 11:45 PM HOME ECONOMIST Body Mass Index 39.76 02/12/2019 11:45 PM HOME ECONOMIST Plan of Treatment Health Maintenance Due Date Last Done Comments Cervical Cancer Screening Pap Smear (Age 21 to 29) Every 3 Years 2003 Cervical Cancer Screening 2003 Annual Physical 2006 Meningococcal B Vaccine (1 of 2 - Standard) 2019 Hepatitis C 2021 DTaP, Tdap and Td Vaccines (7 - Td or Tdap) 05/09/2024 05/09/2014, 11/27/2007, 11/27/2007, Additional history exists COVID-19 Vaccine ( - season) 2024 Influenza Adult (#1) 2025 12/30/2015, 03/16/2012, 02/17/2010, Additional history exists Pneumococcal Vaccine: Pediatrics (0 to 5 Years) and At-Risk Patients (6 to 49 Years) Aged Out 02/26/2004, 2003, 2003 No longer eligible based on patient's age to complete this topic Hepatitis A Vaccines Completed 01/09/2007, 02/26/20 Hepatitis B Vaccines Completed 11/27/2007, 08/25/2004, 2003, Additional history exists Meningococcal Vaccine Aged Out 05/09/2014 No annel brie eligible based on patient's age to complete this topic HPV Vaccines Completed 09/27/2017, 12/30/2015 RSV Immunizations Under 20 Months Aged Out No longer eligible based on patient's age to complete this topic Insurance [facility] Care Teams Roof Cement And Paint Maker Helper Relationship Specialty Start Date End Date Jamil Mari MD [address] [address] PCP - General PEDIATRICS 06/08/18
--- OUTSIDE RECORDS SUMMARY | 2025-03-25 18:05 | XMS_ITS | Encounter Summary ---
Author Organization [facility] Address [address] [place] [address] Care Team Providers Care Steel Rule Die Maker Name Role Phone Jamil Mari MD Primary Care Provider [phone] Encounter Details Date Type Department Care Team (Late st Contact Info) Description 05/26/[address] [address] Luis Yap MD [address] [place] [address] Social History Tobacco Use Types Packs/Day Years Used Date Smoking Tobacco: Never Smokeless Tobacco: Never Comments No Sex and Gender Information Value Date Recorded Sex Assigned at Not on file Legal Sex Female 5:43 AM PORCELAIN TURNER Gender Identity Not on file Sexual Orientation Not on file documented as of this encounter Functional Status * Is person deaf or have serious hearing difficulty? Answer Date of Assessment Author No 05/22/2021 1:48 PM PORCELAIN TURNER Xi Matamoros RN * Is person blind or have serious difficulty seeing? Answer Date of Assessment Author No 05/22/2021 1:48 PM PORCELAIN TURNER Xi Matamoros, RN * Does person have serious difficulty walking/climbing stairs? Answer Date of Assessment Author No 05/22/2021 1:48 PM PORCELAIN TURNER Xi Matamoros, RN * Does person have difficulty dressing/bathing? Answer Date of Assessment Author No 05/22/2021 1:48 PM PORCELAIN TURNER Xi Matamoros, RN * Does person have [...] that we are trying to contact them. ELAIN TURNER * Telephone Encounter - Mattie Bar RN - 05/28/2021 8:45 AM PORCELAIN TURNER LM on home VM asking someone to call us back ELAIN TURNER * Telephone Encounter - Fina Hamilton RN - 05/27/2021 9:40 AM CST LM requesting mom call office for results. ELAIN TURNER * Telephone Encounter - Diana Rubio RN - 05/26/2021 1:07 PM PORCELAIN TURNER Primary phone number does not have VM set up. ELAIN TURNER * Telephone Encounter - Isabella De La Cruz APRN-KARLEE - 05/26/2021 11:33 AM PORCELAIN TURNER I called to discuss the normal EGD. No voicemail option. Please try mom again. ELAIN TURNER * Telephone Encounter - Luis Yap MD - 05/26/2021 10:49 AM PORCELAIN TURNER See normal scope ELAIN TURNER documented in this encounter Plan of Treatment Not on file documented as of this encounter Visit Diagnoses Not on filedocumented in this encounter Care Teams Steel Rule Die Maker Relationship Specialty Start Date End Date Jamil Mari MD [address] [place] [address] PCP - General Pediatrics 04/08/17 11/10/23 documented as of this encounter
== END 2025-03-25 17:10 | disposition home or self-care (01) ==
PROVIDERS: Emergency Provider Emergency Medicine; PCP Physician Assistant
DX: S09.90XA Unspecified injury of head, initial encounter (principal); S93.402A Sprain of unspecified ligament of left ankle, initial encounter; S16.1XXA Strain of muscle, fascia and tendon at neck level, initial encounter; W01.0XXA Fall on same level from slipping, tripping and stumbling without subsequent striking against object, initial encounter
CPT/HCPCS: 70450; 72125; 73600; 96372; 99284; A9270; J1885